=== PATIENT | female | born 1975 | race Caucasian/White ===

== ENCOUNTER 2025-03-03 03:14 | Emergency (ER) | payer OTHER, SELFPAY ==
[2025-03-03] MEDS ORDERED: predniSONE 20 MG TAB ONE (03:54)
== END 2025-03-03 04:05 | disposition home or self-care (01) ==
LOC: NAV ERS 03:14
DX: L23.89 Allergic contact dermatitis due to other agents (principal)
CPT/HCPCS: 99282; J7512